=== PATIENT | male | born 1985 | race Caucasian/White ===

== ENCOUNTER 2020-08-02 18:47 | Emergency (ER) | payer SELFPAY ==
[2020-08-02 18:48] VITALS: BP 143/98; PULSE 82; RESP 16; TEMP 36.7; O2SAT 98; BMI 27.4
[2020-08-02 19:06] LABS: Bedside Glucose > 500 mg/dL (70-110)
--- NOTE | 2020-08-02 19:13 | EKG12_ITS ---
Test Reason : DYSRHYTHMIA Blood Pressure : / mmHG Vent. Rate : 066 BPM Atrial Rate : 066 BPM P-R Int : 144 ms QRS Dur : 098 ms QT Int : 396 ms P-R-T Axes : 076 045 061 degrees QTc Int : 415 ms Normal sinus rhythm Normal ECG Confirmed by JAY YUEN, WHIT ([id number]), mapping editor BONNIE YE ([id number]) on 08/04/2020 10:07:27 AM Referred By: KRISTINE Confirmed By:WHIT THOMPSON MD
--- NOTE | 2020-08-02 19:20 | EDS_ITS ---
HPI History of Present Illness Chief Complaint: Hyperglycemia Narrative Narrative: 35-year-old male with no significant medical history presenting for evaluation due to concern for possible new onset diabetes. Patient has polyuria and polydipsia. He states he has some intermittent blurring of his vision. He states today that he passed out and fell and hurt his back. He denies history of diabetes. He states there is a family history of diabetes. [facility] Medical History (Updated 08/02/20 @ 19:44 by Krista Gracia) Diabetes Home Medications metformin 500 mg PO DAILY #60 tab 08/02/20 [Rx Last Taken Unknown] Allergy/AdvReac Type Severity Reaction Status Date / Time Penicillins [PCN] Allergy Swelling Verified 08/02/20 18:48 Surgical History (Updated 08/02/20 @ 19:44 by Krista Gracia) History of cholecystectomy Social History Smoking Status: Never smoker ROS ROS ED Constitutional Constitutional ED: Denies chills, fever(s) or sweats Eyes Eyes: Reports blurry vision; Denies change in vision ENT ENT ED: Denies ear pain, rhinorrhea or sore throat Cardiovascular Cardiovascular: Reports other Details: Syncope ; Denies chest pain, palpitations or racing heartbeat Respiratory/Chest Respiratory/Chest: Denies cough, dyspnea or sputum Gastrointestinal Gastrointestinal: Denies abdominal pain, constipation, diarrhea or vomiting Genitourinary Genitourinary ED: Denies dysuria, hematuria or urinary frequency Musculoskeletal Musculoskeletal: Denies arthralgias, myalgias or neck pain Integumentary Denies abscess, Abrasions or rash Neurologic Neurologic: Denies headache(s), paresthesias or weakness Psychiatric Psychiatric: Denies anxiety, depression, suicidal ideation or suicidal thoughts Endocrine Endocrinology: Reports polydipsia, polyphagia and polyuria EXAM Physical Exam Const Vital Signs: 08/02/20 18:48 08/02/20 19:43 08/02/20 21:16 Temperature 98.0 F Temperature Source Temporal Pulse Rate 82 60 55 L Respiratory Rate 16 8 L 18 Blood Pressure 143/98 H 131/77 H Blood Pressure Mean 113 95 Pulse Ox 98 97 96 Oxygen Delivery Method Room Air Room Air Room Air Positive well nourished General Appearance ED: NAD HEENT Reports dry mucous membranes Negative for trauma Mouth ED: Yes dry mucous membranes Mouth: dry mucous membranes Eyes PERRL and EOMs intact bilaterally Neck no lymphadenopathy and supple Chest Wall inspection of chest normal and palpation of chest normal Resp normal respiratory effort and clear to auscultation bilaterally Cardio regular rate and regular rhythm GI normal to inspection, nondistended, normoactive bowel sounds and non-tender Palpation: soft Back/Spine Back/Spine Narrative: There is also ecchymosis over the lower aspect of the lumbar spine Lumbar Spine / Lower Back: lumbar spinal tenderness L3, L4 and L5 Extremity normal to inspection General Extremety ED: Negative for edema or tenderness General Extremity: Negative for edema Neuro oriented x3 and CN's II-XII intact bilaterally Sensorium / Orientation: alert Skin no rashes or lesions noted Skin Narrative: Bruising as noted under spine MDM MDM MDM Narrative Medical decision making narrative: Patient presenting with concern for new onset diabetes. This does appear to be the case. His glucose is 458. He was given IV fluids. The rest of his lab work looks fairly normal. He does not have an anion gap. Acetone is negative. EKG interpreted by myself shows a sinus rhythm at 66 bpm without signs of ischemic change. Troponin negative. Chest x-ray is interpreted by myself shows no acute cardiopulmonary process. Urinalysis does not show glucosuria. Patient's repeat blood sugar after fluids is 310. I believe the patient's syncopal episode and fall was likely due to his hyperglycemia as it sounds like he has been symptomatic for some time. Patient's lumbar spine x-ray as interpreted by myself shows no acute fracture or subluxation. Patient is from out of the [facility] and is driving home to [place] tomorrow. He will be started on Metformin in the ED and be given a 30- day supply of this. He is to get established with a primary care in [place]. He was given a glucometer as well. He was given education on diabetes as well as the foods he should and should not eat but it is encouraged him to try to do some research before he sees his primary care physician. He acknowledges understanding. Patient stable for discharge at this time. Impression: 1. New onset diabetes 2. Syncope 3. Back contusion Lab Data Labs: Laboratory Results - last 24 hr 08/02/20 08/02/20 08/02/20 18:53 19:33 19:55 WBC RBC Hgb Hct MCV MCH MCHC RDW Std Deviation RDW Coeff of Norbert Plt Count MPV Immature Gran % (Auto) Neut % (Auto) Lymph % (Auto) [place] % (Auto) Eos % (Auto) Baso % (Auto) Absolute Neuts (auto) Absolute Lymphs (auto) Nucleated RBC % Sodium 133 L Potassium 4.1 Chloride 99 Carbon Dioxide 27.0 Anion Gap 7 BUN 12 Creatinine 0.99 Estim Creat Clear Calc 95.51 Est GFR (MDRD) Af Amer 109 Est GFR (MDRD) Non-Af 90 BUN/Creatinine Ratio 12.1 Glucose 458 H* Calcium 8.5 Total Bilirubin 0.60 AST 26 ALT 85 H Alkaline Phosphatase 93 Troponin I < 0.015 Total Protein 6.4 Albumin 3.4 Globulin 3.0 Albumin/Globulin Ratio 1.1 Urine Color Urine Clarity Urine pH Ur Specific [place] Urine Protein Urine Glucose (UA) Urine Ketones Urine Occult Blood Urine Nitrite Urine Bilirubin Urine Urobilinogen Ur Leukocyte Esterase Urine RBC Urine WBC Ur Squamous Epith Cells Urine Bacteria Urine Mucus Acetone Level POC Glucose > 500 H* 486 H* 08/02/20 08/02/20 08/02/20 19:55 19:55 20:16 WBC 6.6 RBC 4.85 Hgb 15.0 Hct 42.4 MCV 87.4 MCH 30.9 MCHC 35.4 RDW Std Deviation 38.5 RDW Coeff of Norbert 11.9 Plt Count 227 MPV 10.7 Immature Gran % (Auto) 0.500 Neut % (Auto) 65.1 Lymph % (Auto) 20.8 [place] % (Auto) 9.2 Eos % (Auto) 4.1 Baso % (Auto) 0.3 Absolute Neuts (auto) 4.3 Absolute Lymphs (auto) 1.38 Nucleated RBC % 0 Sodium Potassium Chloride Carbon Dioxide Anion Gap BUN Creatinine Estim Creat Clear Calc Est GFR (MDRD) Af Amer Est GFR (MDRD) Non-Af BUN/Creatinine Ratio Glucose Calcium Total Bilirubin AST ALT Alkaline Phosphatase Troponin I Total Protein Albumin Globulin Albumin/Globulin Ratio Urine Color Yellow Urine Clarity Clear Urine pH 6.5 Ur Specific [place] 1.010 Urine Protein Negative Urine Glucose (UA) 1000 H Urine Ketones Negative Urine Occult Blood Negative Urine Nitrite Negative Urine Bilirubin Negative Urine Urobilinogen Normal Ur Leukocyte Esterase Negative Urine RBC 0 SEEN Urine WBC 0 SEEN Ur Squamous Epith Cells 0 SEEN Urine Bacteria 0 SEEN Urine Mucus 0 SEEN Acetone Level NEGATIVE POC Glucose 08/02/20 21:39 WBC RBC Hgb Hct MCV MCH MCHC RDW Std Deviation RDW Coeff of Norbert Plt Count MPV Immature Gran % (Auto) Neut % (Auto) Lymph % (Auto) [place] % (Auto) Eos % (Auto) Baso % (Auto) Absolute Neuts (auto) Absolute Lymphs (auto) Nucleated RBC % Sodium Potassium Chloride Carbon Dioxide Anion Gap BUN Creatinine Estim Creat Clear Calc Est GFR (MDRD) Af Amer Est GFR (MDRD) Non-Af BUN/Creatinine Ratio Glucose Calcium Total Bilirubin AST ALT Alkaline Phosphatase Troponin I Total Protein Albumin Globulin Albumin/Globulin Ratio Urine Color Urine Clarity Urine pH Ur Specific [place] Urine Protein Urine Glucose (UA) Urine Ketones Urine Occult Blood Urine Nitrite Urine Bilirubin Urine Urobilinogen Ur Leukocyte Esterase Urine RBC Urine WBC Ur Squamous Epith Cells Urine Bacteria Urine Mucus Acetone Level POC Glucose 310 H Radiography Diagnostic Testing: Radiology Impression Chest X-Ray 08/02/20 20:15 IMPRESSION: No acute radiographic abnormalities. Electronically Signed: Andrew Garcia MD at 20:29 EDT Tel , Service support , Lumbar Spine X-Ray 08/02/20 20:20 IMPRESSION: Mild spondylosis. No acute fracture Electronically Signed: Vaughn Galicia MD at 20:53 EDT , Service support , Discharge Plan Triage Chief Complaint: Hyperglycemia ED Provider: Edward Chairez Dx/Rx/DC Orders Instructions: ED Hyperglycemia New Susp Diabetes Prescriptions: New metformin 500 mg tablet 500 mg PO DAILY Qty: 60 RF: 0 Other Ambulatory Orders: Glucometer (Routine) Location: None Selected Ordered By: Dr. Edwrad Chairez Primary Care Provider: Care Physician,No Primary Referrals: Care Physician,No Primary [Primary Care Provider] - Disposition Disposition: Home, self care
--- NOTE | 2020-08-02 19:22 | ED.RN ---
NO OLD EKGS IN MUSE
[2020-08-02 19:40] LABS: Bedside Glucose 486 mg/dL (70-110)
[2020-08-02 19:43] VITALS: BP 131/77; PULSE 60; RESP 8; O2SAT 97
[2020-08-02] MEDS: 0.9% Normal Saline 1,000 ML 999 ML IV (19:56)
[2020-08-02 20:05] LABS: Absolute Lymphocyte Count 1.38 X10^3/uL (0.83-4.51); Absolute Neutrophil Count 4.3 X10^3/uL (2.0-7.7); Basophil# 0.02 X10^3/uL; Basophil% 0.3 % (0-1); Eosinophil# 0.27 X10^3/uL; Eosinophils% 4.1 % (0-5); Hematocrit 42.4 % (40-54); Lymphocyte # 1.38 X10^3/ul (0.83-4.51); Lymphocyte % 20.8 % (19-41); Mean Corp Hgb Conc 35.4 g/dL (32-36); Mean Corpuscular Hgb 30.9 pg (27.0-32.0); Mean Corpuscular Volume 87.4 fL (80-94); Mean Platelet Vol. 10.7 fl (6.2-12.0); Monocyte# 0.61 X10^3/uL; Monocyte% 9.2 % (0-10); NRBC Flagged by Analyzer 0 % (0-5); Neutrophil # 4.33 X10^3/uL (2.7-7.7); Neutrophil % 65.1 % (47-70); Platelet Count 227 K/mm3 (150-450); RBC Distribution Width CV 11.9 % (11.6-14.6); RBC Distribution Width SD 38.5 fl (35.1-43.9); Red Blood Count 4.85 M/mm3 (4.6-6.2); White Blood Count 6.6 K/mm3 (4.4-11.0)
--- NOTE | 2020-08-02 20:15 | RAD_ITS ---
INDICATION: weaknesss EXAMINATION/TECHNIQUE: X-RAY - XR Chest 1 View COMPARISON: None. FINDINGS: The lungs are clear. The cardiomediastinal silhouette is unremarkable. No pleural effusion or pneumothorax. No acute osseous abnormalities. RAD/Chest 1 View (Portable) IMPRESSION: No acute radiographic abnormalities. Electronically Signed: Andrew Garcia MD at 20:29 EDT Tel , Service support ,
[2020-08-02 20:20] LABS: Bacteria 0 SEEN /hpf (None Seen); Mucous, Urine 0 SEEN /hpf (<or=2+); Red Blood Cells-Urine 0 SEEN /hpf (0-5); Squamous Epithelial Cells - UA 0 SEEN /hpf (0-5); White Blood Cells 0 SEEN /hpf (0-5)
--- NOTE | 2020-08-02 20:20 | RAD_ITS ---
STUDY: X-RAY - LUMBAR SPINE REASON FOR EXAM: Male, 35 years old. back pain TECHNIQUE: 3 view(s) of the lumbar spine were obtained. COMPARISON: None FINDINGS: Normal lumbar lordosis. There is no substantial scoliosis. There is a normal alignment of the vertebrae. No evidence for acute fracture or subluxation.. Mild narrowing of L3-4 disc space and endplate spurring at L2-3 and L3-4 Postsurgical changes in the right upper quadrant. RAD/Lumbar Spine 2 or 3 Views IMPRESSION: Mild spondylosis. No acute fracture Electronically Signed: Vaughn Galicia MD at 20:53 EDT , Service support ,
[2020-08-02 20:24] LABS: Color, Urine Yellow (Yellow); Glucose, Dipstick 1000 mg/dl (Normal); Ketone-Dipstick Negative (Negative); Leukocyte Esterase-Dipstick Negative /ul (Negative); Nitrite-Dipstick Negative (Negative); Occult Blood-Urine Negative /ul (Negative); Protein-Dipstick Negative (Negative); Urine Bilirubin Dipstick Negative (Negative); Urine Clarity Clear (Clear); Urine Urobilinogen Normal (Normal); Urine pH 6.5 (5.0 - 8.0)
[2020-08-02 20:26] LABS: ALB/GLOB Ratio 1.1 RATIO (0.9-2.4); AST(SGOT) 26 U/L (15-37); Alanine Aminotransfer ALT/SGPT 85 U/L (16-61); Albumin, Serum 3.4 g/dL (3.2-5.0); Alkaline Phosphatase 93 U/L (45-117); Anion Gap 7 (5-15); BUN 12 mg/dL (7-18); BUN/Creat Ratio 12.1 RATIO (10-20); Calcium,Total 8.5 mg/dL (8.5-10.1); Chloride 99 mmol/L (98-107); Creatinine, Serum 0.99 mg/dL (0.70-1.30); EST Glomerular Filtration Rate 90 mL/min (>60); Est Glom Filt Rate - Afr Amer 109 mL/min (>60); Estimated Creatinine Clearance 95.51 ml/min; Glucose 458 mg/dL (74-106); Potassium 4.1 mmol/L (3.5-5.1); Protein, Total 6.4 g/dL (6.4-8.2); Sodium Level 133 mmol/L (136-145)
[2020-08-02 21:16] VITALS: PULSE 55; RESP 18; O2SAT 96
[2020-08-02 21:50] LABS: Bedside Glucose 310 mg/dL (70-110)
[2020-08-02] MEDS: metFORMIN HCl 500 MG Tablet PO (23:04)
[2020-08-02 23:05] VITALS: BP 140/103; PULSE 57; RESP 18; O2SAT 97
== END 2020-08-02 23:10 | disposition home or self-care (01) ==
PROVIDERS: Emergency Provider Student in an Organized Health Care Education/Training Program
DX: E11.65 Type 2 diabetes mellitus with hyperglycemia (principal); R55 Syncope and collapse; S20.229A Contusion of unspecified back wall of thorax, initial encounter; W19.XXXA Unspecified fall, initial encounter
CPT/HCPCS: 71045; 72100; 80053; 81001; 82009; 82962; 84484; 85025; 93005; 99284; J7030

== ENCOUNTER 2022-09-04 23:03 | Emergency (ER) | payer MEDICAID, SELFPAY ==
[2022-09-04 23:04] VITALS: BP 162/131; PULSE 103; RESP 24; TEMP 36.8; O2SAT 10; BMI 35.3
--- NOTE | 2022-09-04 23:15 | RAD_ITS ---
INDICATION: Injury/Pain EXAMINATION/TECHNIQUE: X-RAY - XR Spine Lumbar 2 or 3 Views COMPARISON: Lumbar spine x-rays 08/02/2020 FINDINGS: Vertebral bodies are normal in height. Mild anterior wedging of T11 and T12 vertebral bodies unchanged and may be developmental. No definite fracture demonstrated. No subluxation. Mild disc space narrowing with osteophytes L3-4 unchanged. No paravertebral soft tissue mass identified. Surgical clips right upper abdomen cholecystectomy. RAD/Lumbar Spine 2 or 3 Views IMPRESSION: No evidence of fracture or subluxation. Electronically Signed: Kellie Whitlock MD at 0:02 EDT ,
[2022-09-04] MEDS: Ondansetron 4 MG/2 ML Vial IV (23:27)
[2022-09-04] MEDS: morphine 8 MG/ML Syringe IV (23:28)
--- NOTE | 2022-09-04 23:48 | EDS_ITS ---
HPI HPI - Fall History of Present Illness Chief Complaint: Fall Detail of Chief Complaint: Fall from ladder while cleaning gutters Informant: patient Occured/Mechanism Occurred: Hours Narrative: Patient states he was 10 to 12 feet up from the ground. His foot slipped on one of the rungs. He fell backwards. He states his leg got caught in one of the rungs. He did hit his back on the ground. He denies loss of consciousness. He denies head trauma. He is not amnestic. Fall from Height (ft): 10 to 12 feet potentially Usually ambulates: Without assistance Pain/Injury Location: Lumbar region Current Severity: Mild Maximum Severity: Severe Worsened by: Any type of movement Relieved by: Nothing Associated Symptoms Associated Symptoms: Negative for Parasthesias, Weakness, Loss of function, Inability to ambulate, Loss of consciousness or Amnesia Narrative Narrative: Patient is a 37-year-old male who has history of type 2 diabetes on metformin. He states he was cleaning gutters this afternoon. He fell. He states he was 10 to 12 feet up when he slipped. He fell backwards. He states his leg did get caught in the rung. He did not fall directly from the ladder. He denies loss of conscious. He is not amnestic. He denies neck pain. He denies paresthesia, anesthesia or motor weakness presently in the upper or lower extremity or at the time of the impact. Patient denies chest pain or shortness of breath. Patient denies abdominal pain. Patient states he has urinated since the fall. His urine appeared normal in color it was not dark or have the appearance of blood. He has had a bowel movement since fall. He has had no incontinence of stool. He denies radicular pain. He states the pain has gotten worse over the past couple of hours. He is on no antithrombotic or anticoagulant. Tetanus Immunization: 5-10 years Prior similar symptoms: No Recent Illness/Hospitalization: No PFSH PFSH Medical History Diabetes Home Medications metformin 500 mg tablet 500 mg PO DAILY #60 tabs 08/02/20 [Rx Last Taken Unknown] oxycodone-acetaminophen 5 mg-325 mg tablet 1 tab PO Q6H PRN PRN pain 5 days #20 TABLETS 09/05/22 [Rx Last Taken Unknown] Allergy/AdvReac Type Severity Reaction Status Date / Time ibuprofen Allergy Severe Anaphylaxis Verified 09/04/22 23:08 Penicillins [PCN] Allergy Swelling Verified 09/04/22 23:04 Surgical History History of cholecystectomy Social History (Updated 09/04/22 @ 23:[address] Ian Moore MD) household members: spouse Smoking Status: Never smoker substance use type: does not use ROS ROS ED Constitutional Constitutional ED: Denies chills or fever(s) Eyes Eyes: Denies blurry vision, change in vision or diplopia ENT ENT ED: Reports other Details: He denies decreased hearing or ringing's ears. He denies epistaxis. ; Denies ear pain, rhinorrhea or sore throat Cardiovascular Cardiovascular: Denies chest pain or palpitations Respiratory/Chest Respiratory/Chest: Denies cough, dyspnea or dyspnea on exertion Gastrointestinal Gastrointestinal: Denies abdominal pain, nausea or vomiting Genitourinary Genitourinary ED: Denies hematuria Musculoskeletal Musculoskeletal: Reports back pain; Denies arthralgias, myalgias or neck pain Integumentary Reports other Details: Patient does have a bruise lower mid back. ; Denies rash Neurologic Neurologic: Denies paresthesias or weakness Endocrine Endocrinology: Denies polydipsia or polyuria Hematologic/Lymphatic Hematologic/Lymphatic: Denies easy bleeding or easy bruising EXAM Physical Exam Const Vital Signs: 09/04/22 23:04 09/04/22 23:13 Temperature 98.2 F Temperature Source Temporal Pulse Rate 103 H Respiratory Rate 24 H Respiratory Effort Normal Respiratory Depth Shallow Respiratory Pattern Normal Blood Pressure 162/131 H Blood Pressure Mean 141 Pulse Ox 10 Oxygen Delivery Method Room Air Positive well nourished, well developed and obese Constitutional Narrative: Patient appears uncomfortable. General Appearance ED: well developed Nutritional Appearance: obese HEENT Reports normocephalic and TM's normal bilaterally HEENT Narrative: There is no clinical findings of basilar skull fracture. There is no septal deviation hematoma. There is no TMJ tenderness. atraumatic Eyes PERRL and EOMs intact bilaterally General Eye ED: Negative for pale conjunctiva or scleral icterus Neck full ROM, no lymphadenopathy and supple General: Negative for tenderness Chest Wall inspection of chest normal and palpation of chest normal Resp normal respiratory effort, no retractions and clear to auscultation bilaterally Cardio regular rhythm, S1 normal heart sound, S2 normal heart sound and no murmurs Rate: tachycardic GI non-tender, non-distended and no masses GI Narrative: Patient commented when I was palpating his abdomen he had pain in his back not his abdomen Inspection: Negative for abdominal distention Palpation: soft Back/Spine no CVA tenderness Back/Spine Narrative: Patient has ecchymotic area from L1-L5. There is no pain the patient over the sacrum, right or left iliac wing or right or left ischial tuberosity. Lumbar Spine / Lower Back: lumbar spinal tenderness and paraspinal muscle tenderness Extremity Extremity Narrative: There is no shortening of the right or left lower extremity. There is no pain with logrolling. He is able to extend and hold up against gravity bilaterally. Patella and ankle reflex are 1+ and symmetric. EHLs intact. L3, L4, L5 and S1 dermatome are intact and symmetric. DP and PT pulse are palpable. Neuro oriented x3, CN's II-XII intact bilaterally, moves all extremities, no focal motor deficits and no sensory deficits noted [place] Coma Scale: document GCS findings Spontaneous Obeys Commands Oriented 15 Sensorium / Orientation: alert Psych mental status grossly normal and thought process normal Skin Skin Narrative: Bruise noted over lumbar region L1-5. Rashes: no rashes Trauma: Negative for abrasion MDM MDM MDM Narrative Medical decision making narrative: Patient was medicated with morphine for his pain. X-ray was obtained to evaluate for compression fracture, transverse process fracture, subluxation, wedge fracture, burst fracture etc. CT was not obtained since he has a normal neurologic exam. Radiography Chest X-Ray - ED: Read by ED Physician (Three-view x-ray of his LS spine reveals mild degenerative changes. There is no asymmetry of the disc spaces. There is no subluxation or fracture noted. There is no evidence of spondylolisthesis or spondylosis. This is not currently reviewed interpreted by me at [id number].) Diagnostic Testing: Clinical Impression(s) from Imaging Studies Lumbar Spine X-Ray 09/04/22 23:15 IMPRESSION: No evidence of fracture or subluxation. Electronically Signed: Kellie Whitlock MD at 0:02 EDT Reading Location ID and State: [facility] / [place] Tel , Service support , Treatment and Re-Evaluation Narrative: Patient has received 4 doses of morphine 8 mg. He is now able to ambulate to the restroom. He was discharged with prescription for Percocet. He was given a work excuse. Discharge Plan Triage Chief Complaint: Fall ED Provider: Ian Moore Dx/Rx/DC Orders Clinical Impression: Fall on and from ladder causing accidental injury, History of type 2 diabetes mellitus, Contusion of lower back and pelvis, initial encounter Instructions: ED Back Contusion Prescriptions: New oxycodone-acetaminophen [oxycodone-acetaminophen] 5-325 mg tablet 1 tab PO Q6H PRN PRN (Reason: pain) 5 Days Qty: 20 0RF No Action metformin 500 mg tablet 500 mg PO DAILY Qty: 60 0RF Stand Alone Forms: ED Work / School Excuse Primary Care Provider: Care Physician,No Primary Referrals: Care Physician,No Primary [Primary Care Provider] - Doctor,Your [Non-Staff] - 3-5 Days if not improving Activity Restrictions/Additional Instructions: 1. Apply ice for 20 to 30 minutes per application 6-10 times a day 2. You will feel worse over the next 24 to 48 hours and potentially hurt in more places and you presently do 3. You will probably hurt for a week if not longer Disposition Disposition: Home, Self Care
[2022-09-05] MEDS: morphine 8 MG/ML Syringe IV ×2 (00:10→01:11)
[2022-09-05 01:38] VITALS: BP 158/95; PULSE 71; RESP 16; O2SAT 98
== END 2022-09-05 02:02 | disposition home or self-care (01) ==
PROVIDERS: Emergency Provider Emergency Medicine; Visit Provider Emergency Medicine
DX: S30.0XXA Contusion of lower back and pelvis, initial encounter (principal); E11.9 Type 2 diabetes mellitus without complications; W11.XXXA Fall on and from ladder, initial encounter; Z79.84 Long term (current) use of oral hypoglycemic drugs; Z90.49 Acquired absence of other specified parts of digestive tract; Y93.89 Activity, other specified
CPT/HCPCS: 72100; 96372; 96374; 96375; 96376; 99283; A4216; J2405

== ENCOUNTER 2022-11-25 17:51 | Emergency (ER) | payer MEDICAID, SELFPAY ==
[2022-11-25 17:51] VITALS: BP 175/90; PULSE 71; RESP 16; TEMP 36.6; O2SAT 100; BMI 35.6
--- NOTE | 2022-11-25 18:00 | EDS_ITS ---
<Statement entered by Devin Mares MD - 11/25/22 20:39> I have personally performed a face to face assessment of the patient and have reviewed the KATELIN Note. HPI History of Present Illness Chief Complaint: Dental Narrative Narrative: 37-year-old male says his right lower molar cracked several weeks ago but did not become painful until a few days ago. He felt swelling along the gumline that spontaneously burst today with a foul taste in his mouth. He continues to have a tooth ache. No fever chills or difficulty swallowing or breathing. He is scheduled to see a dentist in 2 days. [facility] Medical History Diabetes Home Medications metformin 500 mg tablet 500 mg PO DAILY #60 tabs 08/02/20 [Rx Last Taken Unknown] oxycodone-acetaminophen 5 mg-325 mg tablet 1 tab PO Q6H PRN PRN pain 5 days #20 TABLETS 09/05/22 [Rx Last Taken Unknown] clindamycin HCl 150 mg capsule 450 mg (3 x 150 mg) PO TID 7 days #63 caps 11/25/22 [Rx Last Taken Unknown] Allergy/AdvReac Type Severity Reaction Status Date / Time ibuprofen Allergy Severe Anaphylaxis Verified 11/25/22 17:53 Penicillins [PCN] Allergy Swelling Verified 11/25/22 17:53 Surgical History History of cholecystectomy Social History (Updated 09/04/22 @ 23:[address] Ian Moore MD) household members: spouse Smoking Status: Never smoker substance use type: does not use ROS ROS ED ROS Narrative Constitutional: Negative for fever, chills, malaise. ENT: Positive for dental pain. CVS: Respiratory: Negative for shortness of breath. GI: Negative for nausea, vomiting. Neuro: Negative for headache. EXAM Physical Exam Narrative Exam Narrative: CONST: Patient sitting in no acute distress. EYES: Normal inspection. ENT: Tender palpation over right lower back molar that is partially cracked, no periapical abscess. Slight trismus, no tongue elevation, airway patent, no drooling or stridor, sublingual space is soft. NECK: Normal inspection. Trachea midline. RESP: No respiratory distress, CTAB. CVS: Regular rate and rhythm, no murmur, no gallop. SKIN: Color normal, no rash, warm, dry, intact. EXTREMITIES: Normal appearance, no pedal edema. NEURO: Oriented x4. PSYCH: Normal affect. Const Vital Signs: 11/25/22 17:51 Temperature 97.8 F Temperature Source Temporal Pulse Rate 71 Respiratory Rate 16 Blood Pressure 175/90 H Blood Pressure Mean 118 Pulse Ox 100 Oxygen Delivery Method Room Air MDM MDM MDM Narrative Medical decision making narrative: Patient has right lower molar is cracked and tender to palpation. It sounds like he had a periapical abscess that spontaneously drained earlier today. He appears well and nontoxic with stable vital signs. Has no sign of Carroll's angina or deep space infection. Since he is penicillin allergic I prescribed clindamycin with first dose given here and encouraged him to keep his dentist appointment. He was discharged in stable condition. Discharge Plan Triage Chief Complaint: Dental ED Midlevel Provider: Ary Lange ED Provider: Devin Maers Dx/Rx/DC Orders Clinical Impression: Dental abscess Instructions: Dental Abscess Prescriptions: New clindamycin HCl 150 mg capsule 450 mg PO TID 7 Days Qty: 63 0RF No Action metformin 500 mg tablet 500 mg PO DAILY Qty: 60 0RF oxycodone-acetaminophen [oxycodone-acetaminophen] 5-325 mg tablet 1 tab PO Q6H PRN PRN (Reason: pain) 5 Days Qty: 20 0RF Primary Care Provider: Care Physician,No Primary Referrals: Care Physician,No Primary [Primary Care Provider] - Activity Restrictions/Additional Instructions: Take the antibiotics and Tylenol and follow-up with a dentist. Disposition Disposition: Home, Self Care
[2022-11-25] MEDS: Clindamycin HCl 150 MG Capsule 450 MG PO (18:10)
== END 2022-11-25 18:12 | disposition home or self-care (01) ==
LOC: ED 18:09
PROVIDERS: Emergency Provider Emergency Medicine; Visit Provider Emergency Medicine
DX: K04.7 Periapical abscess without sinus (principal); E11.638 Type 2 diabetes mellitus with other oral complications; Z79.84 Long term (current) use of oral hypoglycemic drugs; Z90.49 Acquired absence of other specified parts of digestive tract
CPT/HCPCS: 99282